=== PATIENT | female | born 1980 | race Caucasian/White ===

== ENCOUNTER 2017-06-25 09:38 | Emergency (ER) | payer BC ==
[~2017-06-25] VITALS: Ht 177.8 cm; Wt 68.0 kg
[2017-06-25] MEDS ORDERED: HYDRALAZINE 2525 MG PO (09:57)
[2017-06-25] MEDS ORDERED: AMOXICILLIN 50500 MG PO (09:57)
[2017-06-25] MEDS ORDERED: TRAZODONE 150150 M1 PO (09:57)
[2017-06-25] MEDS ORDERED: LEXAPRO20 MG PO (09:57)
[2017-06-25] MEDS ORDERED: MEDROLDOSEPACK PO (10:39)
[2017-06-25] MEDS ORDERED: NORCO 5-325 TA1 EACH PO (10:39)
[2017-06-25] MEDS ORDERED: FLEXERIL PO (10:39)
[2017-06-25 10:56] VITALS: BP 134/93
== END 2017-06-25 10:57 | disposition home or self-care (01) ==
LOC: M.ERS 09:38
DX: M54.41 Lumbago with sciatica, right side (principal); F32.9 Major depressive disorder, single episode, unspecified; F41.9 Anxiety disorder, unspecified; Z88.5 Allergy status to narcotic agent; Z88.2 Allergy status to sulfonamides; F17.200 Nicotine dependence, unspecified, uncomplicated